=== PATIENT | female | born 1945 | race Caucasian/White ===

== ENCOUNTER 2019-07-17 14:26 | Inpatient (IN) | payer MEDICARE, OTHER ==
[~2019-07-17] VITALS: Ht 165.1 cm; Wt 81.4 kg
[~2019-07-17 14:26] MED LIST: ASPI-12 PO; CETI-90 PO; CITA40TA22 PO; ESTR0.5T PO; OMEP20CA4 PO; PER10325T PO
[2019-07-17 15:15] LABS: EOSINOPHILS % (AUTO) 0 % (0-6); MEAN CORPUSCULAR HGB CONC 32.7 g/dL (33.0-36.5); MEAN PLATELET VOLUME 8.5 FL (7.4-10.4); MONOCYTES # (AUTO) 1.6 X10'3 (0-0.9); WHITE BLOOD COUNT 13.7 X10'3 (4.5-11.0)
[2019-07-17] MEDS ORDERED: CefTRIAXone 2gm/D5W 50ml 50 ML IV ONE (15:15)
[2019-07-17] MEDS ORDERED: normal saline 1000ML IV soln IV ONE (15:15)
[2019-07-17] MEDS ORDERED: piperacillin/tazo 3.375gm/50ml 50 ML IV ONE (15:15)
[2019-07-17] MEDS ORDERED: acetaminophen 325mg/10.15ml oral unit dose solution PO ONE (15:15)
[2019-07-17] MEDS ORDERED: proCHLORperazine 10 MG/2 ml inj IV ONE (15:15)
[2019-07-17 15:16] LABS: BASOPHILS % (AUTO) 0.2 % (0-1); HEMATOCRIT 39.7 % (35.0-45.0); MEAN CORPUSCULAR HEMOGLOBIN 32.3 PG (27.0-31.0); MEAN CORPUSCULAR VOLUME 98.7 FL (78-98); NEUTROPHILS # (AUTO) 11.1 X10'3 (1.8-7.7); NEUTROPHILS % (AUTO) 80.8 % (42-75); PLATELET COUNT 180 X10'3 (140-440); RED BLOOD COUNT 4.02 X10'6 (4.20-5.60); RED CELL DISTRIBUTION WIDTH 14.9 % (11.5-14.5)
--- NOTE | 2019-07-17 15:34 | NUR ---
called [email or web address] to bring down Rocephin.
[2019-07-17 15:45] LABS: BILIRUBIN,TOTAL 1.3 MG/DL (0.1-1.0); BLOOD UREA NITROGEN 16 MG/DL (7-18); CALCIUM 9.3 MG/DL (8.5-10.1); GLUCOSE 125 MG/DL (70-104)
[2019-07-17 15:46] LABS: ALBUMIN 3.3 G/DL (3.4-5.0); ALBUMIN/GLOBULIN RATIO 0.7 (1.1-1.5); ANION GAP 12 (8-16); BUN/CREATININE RATIO 9.2 (6.6-38.0); CHLORIDE 102 MMOL/L (99-107); CREATININE 1.74 MG/DL (0.40-0.90); SODIUM 134 MMOL/L (135-145); TOTAL CARBON DIOXIDE 20.1 MMOL/L (24-32); eGFR 29 ML/MIN
[2019-07-17 15:47] LABS: ALANINE AMINOTRANSFERASE 21 U/L (12-78); ALKALINE PHOSPHATASE 113 IU/L (46-116); ASPARTATE AMINO TRANSFERASE 25 U/L (10-37)
[2019-07-17 15:48] LABS: POTASSIUM 2.8 MMOL/L (3.5-5.1)
--- NOTE | 2019-07-17 16:35 | NUR ---
covid swab sent to lab
[2019-07-17 16:50] LABS: CLARITY,URINE CLEAR (Clear); COLOR,URINE YELLOW (Yellow); GLUCOSE, URINE 100 mg/dl (Neg); KETONES,URINE NEGATIVE (Neg); LEUKOCYTE ESTERASE ,URINE NEGATIVE (Neg); NITRITES, URINE NEGATIVE (Neg); OCCULT BLOOD,URINE MODERATE (Neg); PROTEIN,URINE 100 mg/dl (Neg); UROBILINOGEN,URINE 0.2 E.U/dL (0.2-1.0)
[2019-07-17 16:56] LABS: BACTERIA,URINE NONE SEEN /HPF (Neg); MUCUS STRANDS NONE SEEN /LPF (Neg); RBC,URINE 0-2 /HPF (0-2); SQUAMOUS EPITHELIAL CELL,UR FEW /LPF (FEW); UA COLLECTION TYPE CLN CATCH MIDSTREAM; WBC,URINE 0-4 /HPF (0-4)
--- NOTE | 2019-07-17 16:57 | NUR ---
NEGATIVE COVID PER MICRO.PRIMARY RN AWARE.
[2019-07-17] MEDS ORDERED: potassium Cl 20 mEq SR tablet PO STA (17:52)
[2019-07-17] MEDS ORDERED: ATOR20TA66 PO (19:05)
[2019-07-17] MEDS ORDERED: ALEN70TA13 PO (19:05)
[2019-07-17] MEDS ORDERED: CHOL500049 PO (19:05)
[2019-07-17] MEDS ORDERED: CALC500T63 PO (19:05)
[2019-07-17] MEDS ORDERED: potassium CL 10mEq/100ml bag 100 ML IV PRN ×2 (21:00)
[2019-07-17] MEDS ORDERED: potassium Cl 20 mEq SR tablet PO PRN (21:00)
[2019-07-17] MEDS ORDERED: mag hydrox/Alum hydrox/simeth 30ml oral suspension PO PRN (21:00)
[2019-07-17] MEDS ORDERED: magnesium hydroxide 30ml (MOM) UD suspension PO PRN (21:00)
[2019-07-17] MEDS ORDERED: ondansetron/PF 4mg/2ml inj IV PRN (21:00)
[2019-07-17] MEDS ORDERED: azithromycin 250mg tablet PO ONE (21:15)
[2019-07-17] MEDS: atorvastatin 20mg tablet PO SCH (21:49)
--- NOTE | 2019-07-17 22:00 | NUR ---
Patient in room ORTHO 4009. I have received report from Maria Isabel PAK and had the opportunity to ask questions and assume patient care.
[2019-07-17 22:20] VITALS: BP 144/73
[2019-07-18] MEDS: acetaminophen 325mg tablet PO PRN ×3 (00:04→20:55)
[2019-07-18] MEDS: normal saline 1000ml 1,000 ML IV SCH ×3 (00:14→23:46)
--- NOTE | 2019-07-18 06:10 | NUR ---
Problems reprioritized. Patient report given, questions answered & plan of care reviewed with Preethi PAK.
[2019-07-18 06:15] LABS: BASOPHILS % (AUTO) 0.2 % (0-1); EOSINOPHILS % (AUTO) 0 % (0-6); HEMATOCRIT 36.1 % (35.0-45.0); HEMOGLOBIN 11.6 g/dl (12.0-16.0); LYMPHOCYTES % (AUTO) 7.9 % (21-51); MEAN CORPUSCULAR HEMOGLOBIN 32.2 PG (27.0-31.0); MEAN CORPUSCULAR HGB CONC 32.1 g/dL (33.0-36.5); MEAN CORPUSCULAR VOLUME 100.3 FL (78-98); MEAN PLATELET VOLUME 8.5 FL (7.4-10.4); MONOCYTES # (AUTO) 1.6 X10'3 (0-0.9); MONOCYTES % (AUTO) 12.4 % (2-12); NEUTROPHILS # (AUTO) 10.3 X10'3 (1.8-7.7); NEUTROPHILS % (AUTO) 79.5 % (42-75); PLATELET COUNT 144 X10'3 (140-440)
--- NOTE | 2019-07-18 06:31 | NUR ---
received report from Mihaela PAK
[2019-07-18 06:33] VITALS: BP 125/50
[2019-07-18 07:02] LABS: ALANINE AMINOTRANSFERASE 23 U/L (12-78); ALBUMIN 2.8 G/DL (3.4-5.0); ALKALINE PHOSPHATASE 100 IU/L (46-116); ANION GAP 14 (8-16); CHLORIDE 111 MMOL/L (99-107); CREATININE 1.53 MG/DL (0.40-0.90); POTASSIUM 3.5 MMOL/L (3.5-5.1); SODIUM 141 MMOL/L (135-145); TOTAL CARBON DIOXIDE 15.9 MMOL/L (24-32); eGFR 33 ML/MIN
[2019-07-18 07:04] LABS: ALBUMIN/GLOBULIN RATIO 0.6 (1.1-1.5); ASPARTATE AMINO TRANSFERASE 28 U/L (10-37); BILIRUBIN,TOTAL 0.7 MG/DL (0.1-1.0); BLOOD UREA NITROGEN 13 MG/DL (7-18); BUN/CREATININE RATIO 8.5 (6.6-38.0); CALCIUM 8.6 MG/DL (8.5-10.1); GLUCOSE 110 MG/DL (70-104); TOTAL PROTEIN 7.2 G/DL (6.4-8.2)
[2019-07-18] MEDS: azithromycin 250mg tablet PO SCH (07:10)
[2019-07-18] MEDS: pantoprazole 40mg Tablet.DR PO SCH (07:10)
[2019-07-18] MEDS: heparin, porcine 5000 units/ml vial SQ SCH ×2 (07:11→20:57)
[2019-07-18] MEDS: K and/or MAG REPLACEMENT MC SCH ×2 (08:00→20:00)
[2019-07-18 11:00] VITALS: BP 108/63
[2019-07-18] MEDS: CefTRIAXone/D5W-Rocephin 1gm 50 ML IV SCH (15:15)
[2019-07-18 18:00] VITALS: BP 110/53
[2019-07-18] MEDS: atorvastatin 20mg tablet PO SCH (20:55)
[2019-07-18] MEDS: lactobacillus rhamnosus 10,000 MMU CELLS/CAPSULE PO SCH (20:56)
[2019-07-18 22:00] VITALS: BP 97/50
[2019-07-19] MEDS: normal saline 1000ml 1,000 ML IV SCH ×3 (02:56→22:56)
[2019-07-19 06:24] LABS: BASOPHILS % (AUTO) 0.3 % (0-1); EOSINOPHILS % (AUTO) 0.1 % (0-6); HEMATOCRIT 33.1 % (35.0-45.0); HEMOGLOBIN 10.8 g/dl (12.0-16.0); LYMPHOCYTES % (AUTO) 12.3 % (21-51); MEAN CORPUSCULAR HEMOGLOBIN 32.2 PG (27.0-31.0); MEAN CORPUSCULAR HGB CONC 32.8 g/dL (33.0-36.5); MEAN CORPUSCULAR VOLUME 98.4 FL (78-98); MEAN PLATELET VOLUME 8.7 FL (7.4-10.4); MONOCYTES # (AUTO) 0.9 X10'3 (0-0.9); MONOCYTES % (AUTO) 11.1 % (2-12); NEUTROPHILS # (AUTO) 6.1 X10'3 (1.8-7.7); NEUTROPHILS % (AUTO) 76.2 % (42-75); PLATELET COUNT 140 X10'3 (140-440); RED BLOOD COUNT 3.36 X10'6 (4.20-5.60); RED CELL DISTRIBUTION WIDTH 14.7 % (11.5-14.5)
[2019-07-19 06:39] LABS: ALANINE AMINOTRANSFERASE 26 U/L (12-78); ALBUMIN 2.3 G/DL (3.4-5.0); ALBUMIN/GLOBULIN RATIO 0.6 (1.1-1.5); ALKALINE PHOSPHATASE 81 IU/L (46-116); ANION GAP 15 (8-16); ASPARTATE AMINO TRANSFERASE 37 U/L (10-37); BILIRUBIN,TOTAL 0.4 MG/DL (0.1-1.0); BLOOD UREA NITROGEN 12 MG/DL (7-18); CALCIUM 8.1 MG/DL (8.5-10.1); CHLORIDE 111 MMOL/L (99-107); GLUCOSE 94 MG/DL (70-104); SODIUM 142 MMOL/L (135-145); TOTAL CARBON DIOXIDE 16.2 MMOL/L (24-32); TOTAL PROTEIN 6.3 G/DL (6.4-8.2); eGFR 34 ML/MIN
--- NOTE | 2019-07-19 06:42 | NUR ---
RECEIVED REPORT FROM CARO PAK
[2019-07-19 06:43] LABS: POTASSIUM 2.8 MMOL/L (3.5-5.1)
[2019-07-19] MEDS: K and/or MAG REPLACEMENT MC SCH ×2 (08:00→20:00)
[2019-07-19] MEDS: azithromycin 250mg tablet PO SCH (08:31)
[2019-07-19] MEDS: lactobacillus rhamnosus 10,000 MMU CELLS/CAPSULE PO SCH ×2 (08:33→19:59)
[2019-07-19] MEDS: heparin, porcine 5000 units/ml vial SQ SCH ×2 (08:33→19:58)
[2019-07-19] MEDS: pantoprazole 40mg Tablet.DR PO SCH (08:33)
[2019-07-19] MEDS: potassium Cl 20 mEq SR tablet PO PRN ×3 (08:33→19:59)
[2019-07-19 08:42] VITALS: BP 109/46
[2019-07-19] MEDS: acetaminophen 325mg tablet PO PRN ×2 (10:59→17:51)
[2019-07-19 11:45] VITALS: BP 107/67
--- NOTE | 2019-07-19 12:58 | NUR ---
pt is sitting up on the side of the bed eating Addendum: 07/19/19 at 1258 by Mary Ann HUERTAS Amended: Links added.
[2019-07-19] MEDS: CefTRIAXone/D5W-Rocephin 1gm 50 ML IV SCH (15:11)
[2019-07-19 18:00] VITALS: BP 129/81
--- NOTE | 2019-07-19 18:30 | NUR ---
Patient in room ORTH[facility] 4011. I have received report from PASHA ZHOU and had the opportunity to ask questions and assume patient care.
[2019-07-19] MEDS: atorvastatin 20mg tablet PO SCH (19:59)
[2019-07-19 22:00] VITALS: BP 124/76
[2019-07-20 00:57] LABS: BASOPHILS % (AUTO) 0.3 % (0-1); EOSINOPHILS % (AUTO) 0.2 % (0-6); HEMATOCRIT 33.8 % (35.0-45.0); LYMPHOCYTES # (AUTO) 0.9 X10'3 (1.1-4.8); LYMPHOCYTES % (AUTO) 12.2 % (21-51); MEAN CORPUSCULAR HGB CONC 32.6 g/dL (33.0-36.5); MEAN CORPUSCULAR VOLUME 98.2 FL (78-98); MEAN PLATELET VOLUME 8.7 FL (7.4-10.4); MONOCYTES # (AUTO) 0.7 X10'3 (0-0.9); MONOCYTES % (AUTO) 9.9 % (2-12); NEUTROPHILS # (AUTO) 5.6 X10'3 (1.8-7.7); NEUTROPHILS % (AUTO) 77.4 % (42-75); PLATELET COUNT 161 X10'3 (140-440); RED BLOOD COUNT 3.44 X10'6 (4.20-5.60); RED CELL DISTRIBUTION WIDTH 15.1 % (11.5-14.5); WHITE BLOOD COUNT 7.2 X10'3 (4.5-11.0)
[2019-07-20 01:12] LABS: ALANINE AMINOTRANSFERASE 42 U/L (12-78); ALBUMIN 2.4 G/DL (3.4-5.0); ALKALINE PHOSPHATASE 102 IU/L (46-116); ANION GAP 12 (8-16); CHLORIDE 113 MMOL/L (99-107); CREATININE 1.63 MG/DL (0.40-0.90); POTASSIUM 3.8 MMOL/L (3.5-5.1); SODIUM 141 MMOL/L (135-145); TOTAL CARBON DIOXIDE 16.5 MMOL/L (24-32); eGFR 31 ML/MIN
[2019-07-20 01:16] LABS: ALBUMIN/GLOBULIN RATIO 0.5 (1.1-1.5); ASPARTATE AMINO TRANSFERASE 50 U/L (10-37); BILIRUBIN,TOTAL 0.2 MG/DL (0.1-1.0); BLOOD UREA NITROGEN 13 MG/DL (7-18); CALCIUM 8.7 MG/DL (8.5-10.1); GLUCOSE 123 MG/DL (70-104); TOTAL PROTEIN 6.8 G/DL (6.4-8.2)
[2019-07-20] MEDS: acetaminophen 325mg tablet PO PRN ×2 (01:20→08:55)
[2019-07-20 06:00] VITALS: BP 114/63
--- NOTE | 2019-07-20 06:30 | NUR ---
Problems reprioritized. Patient report given, questions answered & plan of care reviewed with PASHA HARVEY.
--- NOTE | 2019-07-20 06:41 | NUR ---
Patient in room ORTHO 4011B. I have received report from PASHA ELIZONDO and had the opportunity to ask questions and assume patient care.
[2019-07-20] MEDS: K and/or MAG REPLACEMENT MC SCH (07:08)
[2019-07-20] MEDS: pantoprazole 40mg Tablet.DR PO SCH (07:32)
[2019-07-20] MEDS: lactobacillus rhamnosus 10,000 MMU CELLS/CAPSULE PO SCH (07:32)
[2019-07-20] MEDS: azithromycin 250mg tablet PO SCH (07:32)
[2019-07-20] MEDS: heparin, porcine 5000 units/ml vial SQ SCH (07:35)
[2019-07-20] MEDS: normal saline 1000ml 1,000 ML IV SCH (08:50)
[2019-07-20] MEDS ORDERED: AMOX-419 PO (09:56)
[2019-07-20] MEDS ORDERED: AZIT500T2 PO (09:58)
[2019-07-20 10:07] VITALS: BP 110/64
--- NOTE | 2019-07-20 11:00 | NUR ---
discharge instructions given, pt had opportunity to ask questions. IV was removed intact with no complications. Pt was assisted with dressing and wheeled down in stable condition to private vehicle with driving
== END 2019-07-20 11:00 | disposition home or self-care (01) | DRG 871 ==
LOC: ER 14:27 → ED HOLD 20:56 → ORTHO 4S 22:05
PROVIDERS: ADMIT Internal Medicine; ATTEND Internal Medicine
DX: A41.9 Sepsis, unspecified organism (principal); J18.9 Pneumonia, unspecified organism; N17.9 Acute kidney failure, unspecified; E87.6 Hypokalemia; N18.9 Chronic kidney disease, unspecified; M17.0 Bilateral primary osteoarthritis of knee; K44.9 Diaphragmatic hernia without obstruction or gangrene; K21.9 Gastro-esophageal reflux disease without esophagitis; M19.90 Unspecified osteoarthritis, unspecified site; E78.5 Hyperlipidemia, unspecified; F32.9 Major depressive disorder, single episode, unspecified; Z20.828 Contact with and (suspected) exposure to other viral communicable diseases; Z90.710 Acquired absence of both cervix and uterus; Z88.8 Allergy status to other drugs, medicaments and biological substances
CPT/HCPCS: 36415; 71045; 74176; 80053; 81001; 83605; 84145; 84484; 85025; 87040; 87081; 87635; 93005; 93306; 96365; 96366; 96367; 96375; 99285; G0378; J0696; J0780; J1644; J2405; J2543; J7030

== ENCOUNTER 2021-12-19 07:58 | Day surgery (SDC) | payer MEDICARE, OTHER ==
[~2021-12-19] VITALS: Ht 154.9 cm; Wt 66.7 kg
[~2021-12-19 07:58] MED LIST changes: +ALEN70TA80 PO; -ASPI-12 PO; +ATOR20TA66 PO; +CALC500T63 PO; -CETI-90 PO; +CHOL500049 PO; -CITA40TA22 PO; -ESTR0.5T PO; -PER10325T PO
[2021-12-19] MEDS ORDERED: LIDOcaine 1% 30ml preserv. free vial SQ STA (08:03)
[2021-12-19 08:16] VITALS: BP 104/71
[2021-12-19] MEDS ORDERED: CITA20TA26 PO (08:21)
[2021-12-19] MEDS ORDERED: HYDR-3972 PO (08:22)
[2021-12-19] MEDS ORDERED: ASPI-1265 PO (08:22)
[2021-12-19 08:47] LABS: BASOPHILS % (AUTO) 0.5 % (0-1); EOSINOPHILS % (AUTO) 0.5 % (0-6); HEMATOCRIT 32.7 % (35.0-45.0); HEMOGLOBIN 11.1 g/dl (12.0-16.0); MEAN CORPUSCULAR HEMOGLOBIN 32.1 PG (27.0-31.0); MEAN CORPUSCULAR HGB CONC 33.9 g/dL (33.0-36.5); MEAN CORPUSCULAR VOLUME 94.7 FL (78-98); MEAN PLATELET VOLUME 9.5 FL (7.4-10.4); MONOCYTES # (AUTO) 0.9 X10'3 (0-0.9); NEUTROPHILS # (AUTO) 6.2 X10'3 (1.8-7.7); PLATELET COUNT 111 X10'3 (140-440); RED BLOOD COUNT 3.45 X10'6 (4.20-5.60); WHITE BLOOD COUNT 9.2 X10'3 (4.5-11.0)
[2021-12-19 10:15] VITALS: BP 105/72
[2021-12-19 10:30] VITALS: BP 105/67
[2021-12-19 10:45] VITALS: BP 98/61
== END 2021-12-19 11:15 | disposition home or self-care (01) ==
LOC: SSTAY O 07:58
PROVIDERS: ATTEND Radiology Vascular & Interventional Radiology
DX: D47.2 Monoclonal gammopathy (principal); C90.00 Multiple myeloma not having achieved remission; Z88.8 Allergy status to other drugs, medicaments and biological substances; Z79.899 Other long term (current) drug therapy; Z79.82 Long term (current) use of aspirin; Z98.890 Other specified postprocedural states
CPT/HCPCS: 17999; 20206; 36415; 85025; 88305; 88313

== ENCOUNTER 2022-01-21 07:32 | Day surgery (SDC) | payer MEDICARE, OTHER ==
[2022-01-16 10:51] LABS: BASOPHILS % (AUTO) 0.5 % (0-1); EOSINOPHILS % (AUTO) 0.4 % (0-6); LYMPHOCYTES # (AUTO) 1.8 X10'3 (1.1-4.8); LYMPHOCYTES % (AUTO) 31.9 % (21-51); MEAN CORPUSCULAR HEMOGLOBIN 33.7 PG (27.0-31.0); MEAN CORPUSCULAR HGB CONC 32.2 g/dL (33.0-36.5); MEAN CORPUSCULAR VOLUME 104.7 FL (78-98); MEAN PLATELET VOLUME 8.6 FL (7.4-10.4); MONOCYTES # (AUTO) 0.5 X10'3 (0-0.9); MONOCYTES % (AUTO) 8.3 % (2-12); NEUTROPHILS # (AUTO) 3.3 X10'3 (1.8-7.7); NEUTROPHILS % (AUTO) 58.9 % (42-75); PRE OP HEMATOCRIT 30.9 % (35.0-45.0); RED BLOOD COUNT 2.95 X10'6 (4.20-5.60); RED CELL DISTRIBUTION WIDTH 21.1 % (11.5-14.5)
[2022-01-16 11:11] LABS: PRE OP HEMOGLOBIN 9.9 g/dL (12.0-16.0); PRE OP PLATELET COUNT 31 X10'3 (140-440)
[2022-01-16 11:12] LABS: ANISOCYTOSIS 3+; PLATELET ESTIMATE DECREASED; POLYCHROMASIA 1+; TEAR DROP CELLS FEW
[2022-01-16 14:42] LABS: ALBUMIN 3.1 G/DL (3.4-5.0); ALBUMIN/GLOBULIN RATIO 0.9 (1.1-1.5); ALKALINE PHOSPHATASE 230 IU/L (46-116); BLOOD UREA NITROGEN 18 MG/DL (7-18); BUN/CREATININE RATIO 11.4 (6.6-38.0); CALCIUM 8.6 MG/DL (8.5-10.1); CHLORIDE 109 MMOL/L (99-107); CREATININE 1.58 MG/DL (0.40-0.90); PRE OP ANION GAP 12 (8-16); PRE OP BILIRUB, TOTAL 0.9 MG/DL (0.0-1.0); PRE OP GLUCOSE 95 MG/DL (70-104); PRE OP SODIUM 141 MMOL/L (135-145); TOTAL CARBON DIOXIDE 20.4 MMOL/L (24-32); TOTAL PROTEIN 6.7 G/DL (6.4-8.2); eGFR 32 ML/MIN
[2022-01-16 14:55] LABS: PRE OP INR 0.9 INR; PRE OP PROTIME 9.8 SECONDS (9.0-12.0)
[2022-01-16 15:32] LABS: PRE OP ALT 105 U/L (30-65); PRE OP AST 129 U/L (10-37); PRE OP POTASSIUM 3.3 MMOL/L (3.4-5.1)
[2022-01-21] VITALS (12 sets, daily range): BP systolic 78–108; BP diastolic 48–67
[~2022-01-21] VITALS: Ht 162.6 cm; Wt 69.4 kg
[2022-01-21] MEDS: ceFAZolin inj. 2,000 MG in dextrose 5%-water 100 ML IV ONE (05:30)
[~2022-01-21 07:32] MED LIST changes: -ALEN70TA80 PO; +ASPI-1265 PO; -ATOR20TA66 PO; +BUPIVAcaine 0.5% inj/PF 30 ML ONE; +CHOL10008 PO; -CHOL500049 PO; +CITA20TA26 PO; +LIDOcaine 1% 30ml preserv. free vial ONE
[2022-01-21] MEDS: ringers solution, lacted 1,000 ML IV SCH (09:50)
[2022-01-21] MEDS: famotidine 20mg tablet PO ONE (09:51)
[2022-01-21 09:58] LABS: BASOPHILS % (AUTO) 0.6 % (0-1); EOSINOPHILS # (AUTO) 0.1 X10'3 (0-0.9); EOSINOPHILS % (AUTO) 1.6 % (0-6); HEMATOCRIT 25.1 % (35.0-45.0); HEMOGLOBIN 8.1 g/dl (12.0-16.0); LYMPHOCYTES # (AUTO) 1.5 X10'3 (1.1-4.8); LYMPHOCYTES % (AUTO) 36.9 % (21-51); MEAN CORPUSCULAR HGB CONC 32.3 g/dL (33.0-36.5); MEAN CORPUSCULAR VOLUME 105.2 FL (78-98); MEAN PLATELET VOLUME 8.4 FL (7.4-10.4); MONOCYTES # (AUTO) 0.3 X10'3 (0-0.9); MONOCYTES % (AUTO) 6.6 % (2-12); NEUTROPHILS # (AUTO) 2.2 X10'3 (1.8-7.7); NEUTROPHILS % (AUTO) 54.3 % (42-75); RED BLOOD COUNT 2.39 X10'6 (4.20-5.60); WHITE BLOOD COUNT 4.1 X10'3 (4.5-11.0)
[2022-01-21 10:15] LABS: PLATELET COUNT 21 X10'3 (140-440)
--- NOTE | 2022-01-21 10:26 | NUR ---
RECEIVED CRITICAL PLT COUNT OF 21. NURSING CALLED OR 6 TO REPORT CRITICAL RESULT TO DR MARTINEZ AND DR GRAHAM. THE PREFORMER [employer] CAME TO GET PT'S CHART PER ANESTHESIA REQUEST. PT'S COUNT WAS LOW ON PRE-OP LABS AND PT WAS INSTRUCTED TO RECEIVED PLT TRANSFUSION PRIOR TO COMING IN FOR SURGERY. PT DID RECEIVE TRANSFUSION ON 01/18, BLOOD BAND ([id number]) IS STILL ON PT. NO NEW ORDERS RECEIVED AT THIS TIME. WILL CONTINUE TO ASSESS.
--- NOTE | 2022-01-21 11:04 | NUR ---
DR GUZMAN CALLED AND SPOKE TO PT'S ONCOLOGIST. NURSING RECEIVED ORDER FROM DR GUZMAN TO TRANSFUSE 1 UNIT PLT. NEW TYPE AND SCREEN WILL BE DRAWN AND SENT TO LAB STAT AND PT WILL BE TRANSFUSED AT SOON AT IT IS MADE AVAILABLE. Addendum: 01/21/22 at 1140 by Conor Burks RN TYPE AND SCREEN COLLECTED AND SENT TO LAB, NEW BLOOD BAND NUMBER IS [id number] AND OLD BAND WAS CUT OFF PER LANCE IN BLOOD BANK.
[2022-01-21] MEDS ORDERED: ondansetron/PF 4mg/2ml inj IV PRN (11:20)
[2022-01-21] MEDS ORDERED: ringers solution, lacted 1,000 ML IV SCH (11:20)
[2022-01-21] MEDS ORDERED: morphine 4 MG/ML inj SYRINge IV PRN (11:20)
[2022-01-21] MEDS ORDERED: fentaNYL/PF 50MCG/1 ML 2ML syringe IV PRN ×2 (11:20)
[2022-01-21] MEDS ORDERED: hydrALAZINE 20mg/ml inj. IV PRN (11:20)
[2022-01-21] MEDS ORDERED: morphine 2 MG/ML inj. syringe IV PRN (11:20)
[2022-01-21] MEDS ORDERED: labetalol 20mg/4ml (5mg/ml) syringe IV PRN (11:20)
[2022-01-21] MEDS ORDERED: midazolam 1 mg/ML 2ml injection ONE (11:25)
[2022-01-21] MEDS ORDERED: fentaNYL/PF 50MCG/1 ML 2ML syringe ONE (11:25)
[2022-01-21] MEDS ORDERED: triamcinolone acetonide 40mg/ml inj ONE (12:32)
[2022-01-21] MEDS ORDERED: LIDOcaine 1% (10mg/ml) 2ml vial ONE (12:32)
--- NOTE | 2022-01-21 12:36 | NUR ---
PT TAKEN TO OR BY CHEMICAL BLENDER AND ANESTHESIA. PLT STARED AND ANESTHESIA TO FINISH. PLT WERE ABOUT HALF TRANSFUSED WHEN PT WAS TAKEN BACK. NO S/S OF REACTION THUS FAR.
--- NOTE | 2022-01-21 12:58 | NUR ---
Received from OR via JULI[facility], accompanied by Anesthesiologist DR BRUCE and report given by Anesthesiologist AND SUPERVISOR [employer]PUT[employer]PERATIONS. PT DROWSY, DENIES PAIN. 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 Addendum: 01/21/22 at 1319 by Mary Jane Camacho RN Amended: Links added.
[2022-01-21] MEDS: BUPIVAcaine 0.5% inj/PF 30 ml vial IJ ONE (13:13)
--- NOTE | 2022-01-21 14:28 | NUR ---
PT UP AND ABLE TO AMBULATE SHORT DISTANCE, PT STATES SHE USES A WALKER AT HOME. D/C INSTRUCTIONS GIVEN AND GONE OVER W/PT WHO VERBALIZED UNDERSTANDING. PT D/CD TO HOME VIA W/C TO PRIVATE VEHICLE W/O INCIDENT. Addendum: 01/21/22 at 1433 by Mary Jane Camacho RN Amended: Links added.
== END 2022-01-21 14:28 | disposition home or self-care (01) ==
LOC: PAS 07:32
PROVIDERS: ATTEND Orthopaedic Surgery Hand Surgery
DX: G56.03 Carpal tunnel syndrome, bilateral upper limbs (principal); F32.9 Major depressive disorder, single episode, unspecified; K21.9 Gastro-esophageal reflux disease without esophagitis; M19.90 Unspecified osteoarthritis, unspecified site; M81.0 Age-related osteoporosis without current pathological fracture; G89.29 Other chronic pain; Z79.899 Other long term (current) drug therapy; Z79.01 Long term (current) use of anticoagulants; Z98.890 Other specified postprocedural states; Z87.891 Personal history of nicotine dependence
CPT/HCPCS: 20526; 36415; 36430; 64721; 80053; 82948; 85025; 85610; 85730; 86885; 86900; 86901; 93005; J0690; J2250; J3010; J3301; J3490; J7030; J7060; J7120; P9035; S0020; Z7506; Z7512; 85008; A4215; J7040